=== PATIENT | female | born 1975 | race Caucasian/White ===

== ENCOUNTER 2018-02-19 11:36 | Emergency (ER) | payer MEDICAID ==
[~2018-02-19] VITALS: Ht 165.1 cm; Wt 159.0 kg
[~2018-02-19 11:36] MED LIST: ASA LO-DOSE81 MG OR; PHENTERMINE30 MG OR; PROMETHAZINE25 MG OR; ROBITUSSIN AC10 ML OR; ZPAK PO
[2018-02-19 12:24] LABS: HEMATOCRIT 42.2 % (37.0-47.0); HEMOGLOBIN 13.3 g/dl (12.0-16.0); IMMATURE GRANULOCYTES 0.7 % (0.0-5.0); MEAN CORPUSCULAR HGB CONC 31.5 g/L CALC (32.0-36.0); NEUT# 8.68 thou/uL (2.00-7.15); RED BLOOD COUNT 5.32 mill/uL (4.20-5.60)
[2018-02-19 12:25] LABS: MEAN CELL VOLUME 79.3 fL CALC (80.0-100.0)
[2018-02-19 12:36] LABS: ALBUMIN 4.2 g/dL (3.2-5.0); ALKALINE PHOSPHATASE 94 u/l (38-126); BILIRUBIN, TOTAL 0.4 mg/dL (0.0-1.4); BUN 13 mg/dL (7-17); BUN/CREATININE RATIO 24 (12-20 (CALC)); CARBON DIOXIDE 25 mmol/l (22-30); CHLORIDE 105 mmol/l (95-108); CREATININE 0.5 mg/dL (0.5-1.0); GFR > 60 ML/MIN (>=60 (CALC)); GFR FOR AFR.AMER. > 60 ML/MIN (>=60 (CALC)); SGOT/AST 22 u/l (14-36); SODIUM 141 mmol/l (137-146); TOTAL PROTEIN 7.8 g/dL (6.3-8.2)
[2018-02-19 12:38] LABS: ANION GAP 16 (6-22 (CALC)); POTASSIUM 4.5 mmol/l (3.5-5.1)
[2018-02-19] MEDS ORDERED: PROAIR HFA IN (12:46)
[2018-02-19] MEDS ORDERED: ZITHROMAX250 MG PO (13:07)
[2018-02-19] MEDS ORDERED: MEDDOSEPAK PO (13:07)
[2018-02-19] MEDS ORDERED: TESSALON PERLE100 MG PO (13:07)
[2018-02-19 14:27] VITALS: BP 160/89
== END 2018-02-19 14:43 | disposition home or self-care (01) ==
LOC: ED 11:36
PROVIDERS: Emergency Medicine
DX: J45.909 Unspecified asthma, uncomplicated (principal); R06.02 Shortness of breath; R05 Cough
CPT/HCPCS: J3475